=== PATIENT | male | born 1995 | race Caucasian/White ===

== ENCOUNTER 2024-04-29 16:32 | Emergency (ER) | payer MEDICAID ==
[~2024-04-29] VITALS: Ht 193 cm; Wt 110.2 kg
[2024-04-29 16:55] VITALS: TEMP 98.4
[2024-04-29] MEDS ORDERED: ERYT1OIN6 RIGHTEYE (19:12)
[2024-04-29 19:20] VITALS: BP 128/79; PULSE 87; RESP 16; O2SAT 96
== END 2024-04-29 19:22 | disposition home or self-care (01) ==
LOC: ER 16:33
DX: H00.12 Chalazion right lower eyelid (principal)
CPT/HCPCS: 99283